=== PATIENT | male | born 1945 | race Caucasian/White ===

== ENCOUNTER 2016-05-23 07:11 | Emergency (ER) | payer OTHER, BC ==
[2016-05-23 07:17] VITALS: RESP 18; TEMP 97.7
--- NOTE | 2016-05-23 07:40 | EDPHY ---
HPI/HX/ROS/PE/MDM Narrative: CHIEF COMPLAINT: Neck pain HPI: The patient is a 71 y/o male arriving with his complaining of left- sided neck pain for the last 3 weeks, much worse this morning. 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 He denies other obvious trauma preceding the pain. He has been using heat and topical [place] for pain without improvement. His pain is associated with decreased [id number] of his left hand due to pain, but no weakness or paresthesias. The pain has prevented him from driving and other daily functions. He is also complaining of "hanging phlegm" in the back of throat. 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 He also notes a younger brother from throat cancer. REVIEW OF SYSTEMS: Aside from elements discussed in the HPI, a comprehensive 10-point review of systems was reviewed and is negative. Preexisting right hand numbness that is followed by his hand specialist PMH: Squamous cell growth removed from right ear last year, right hand surgery, L5-S1 fusion, gastric bypass surgery (100lb weight loss last 2 years), bilateral knee replacements SOCIAL HISTORY: at bedside PHYSICAL EXAM: General:Patient is alert, in no acute distress. ENT:Eyes are normal to inspection. ENT inspection normal. Large uvula. Neck: No tenderness to palpation. Holding head to the right with limited range of motion. Respiratory:No respiratory distress. Breath sounds normal bilaterally. Cardiovascular: Regular rate and rhythm. Strong peripheral pulses. Normal cap refill. Abdomen:The abdomen is nontender to palpation. There are no peritoneal signs. There are normal bowel sounds. Back: Normal to inspection. No tenderness to palpation. Skin: Normal color. No rash. Warm and dry. Extremities: Normal appearance. Full range of motion. Neuro: Oriented x3. Normal motor function. Normal sensory function. ED Course: 1 tab PO Vicodin administered for pain. Study: MRI of the: Cervical spine Indication: Pain Results: MRI scan of the cervical spine was obtained. The results of the study are multilevel degenerative change, nothing acute. The study was read by the radiologist, Dr. Chi. I viewed the images myself on the PACS system. 1000: I discussed imaging results with the patient. He will be given a script for Vicodin and Medrol dose pack; however he plans to check with his GI surgeon first to see if he can use these medications orally. He's been referred to neurosurgery for follow up. Return precautions given. He agrees with plan. MDM: This patient presents with cervical pain and decreased range of motion. Thankfully, his MRI does not reveal any emergent cause of his symptoms. He is comfortable with the plan for discharge and outpatient follow-up. - Data Points Medications Given: Discontinued Medications Hydrocodone Bitart/Acetaminophen ([place] 5/325) 1 tab PO EDNOW ONE Stop: 05/23/16 07:43 Last Admin: 05/23/16 07:50 Dose: 1 tab General Time Seen by Provider: 05/23/16 07:28 Initial Vital Signs: Initial Vital Signs Temperature (C) 36.5 C 05/23/16 07:15 Heart Rate 79 05/23/16 07:15 Respiratory Rate 18 05/23/16 07:15 Blood Pressure 127/76 H 05/23/16 07:15 O2 Sat (%) 98 05/23/16 07:15 O2 Delivery Mode Room Air Allergies/Adverse Reactions: morphine Allergy (Verified 05/23/16 07:17) Home Medications: Medication Instructions Recorded Glimepiride 05/23/16 Hydrocodone/APAP 5/325 [[place] 1 - 2 tab PO Q4H PRN #20 tab 05/23/16 5/325 (RX)] Levothyroxine Sodium [Synthroid] 300 mcg PO 05/23/16 Lipitor 05/23/16 Metformin HCl [Metformin 1000 mg] 1,000 mg PO 05/23/16 methylPREDNISolone [Medrol Dose 1 each PO AD #1 ea 05/23/16 Maximus] Departure - Departure Disposition: Home, Routine, Self-Care Clinical Impression: Neck pain Condition: Good Instructions: Neck Pain (ED) Additional Instructions: 1. Take Medrol dose pack as prescribed once cleared by your GI surgeon. 2. Use Vicodin as prescribed when needed for pain. 3. Follow up with neurosurgeon this coming week. I recommend calling today to make an appointment. Let them know you were evaluated in the ED and had an MRI. 4. Return to the ED for severe pain, weakness or numbness in your hands, dizziness, or other worsening of condition. Referrals: Carlos Enrique Trujillo MD [Primary Care Provider] - As per Instructions Daniel Treadwell MD [Medical Doctor] - As per Instructions Prescriptions: Hydrocodone/APAP 5/325 [Living[place] 5/325 (RX)] 1 - 2 tab PO Q4H PRN #20 tab PRN Reason: Pain, Moderate methylPREDNISolone [Medrol Dose Maximus] 1 each PO AD #1 ea Report Scribed for: Kj Sahni Report Scribed by: Leta Camilo Date of Report: 05/23/16 Time of Report: 07:40 Physician Review and Approval Statement: Portions of this note were transcribed by an ED scribe. I personally performed the history, physical exam, and medical decision making; and confirm the accuracy of the information in the transcribed note.
[2016-05-23] MEDS ORDERED: HYDROCODONE/APAP 5/325 TAB PO ONE (07:42)
[2016-05-23 10:27] VITALS: BP 136/63; PULSE 62; O2SAT 96
== END 2016-05-23 10:23 | disposition home or self-care (01) ==
DX: M54.2 Cervicalgia (principal)